=== PATIENT | female | born 1955 | race Caucasian/White ===

== ENCOUNTER → 2018-02-21 | Outpatient (CLI) | payer OTHER ==
--- NOTE | 2018-02-22 06:55 | US ---
EXAMINATION TYPE: US pelvis complete transvag DATE OF EXAM: 02/21/2018 COMPARISON: NONE CLINICAL HISTORY: N95.0 Post menopausal bleeding x 3 after intercourse per patient TECHNIQUE: . Transabdominal sonographic images of the pelvis were acquired. Transvaginal sonographi c images were medically necessary to better assess the following anatomy: endometrial thickness and b ilateral ovaries Date of LMP: 1999 EXAM MEASUREMENTS: Uterus: 6.8 x 4.0 x 3.1 cm Endometrial Stripe: 0.43 cm Right Ovary: 1.6 x 0.8 x 1.0 cm Left Ovary: 1.9 x 0.5 x 1.3 cm 1. Uterus: Retroverted; solid hyperechoic focus at upper right periphery = 0.4 x 0.4 x 0.4cm (possib le uterine fibroid) 2. Endometrium: thickness is wnl post menopause 3. Right Ovary: wnl, small follicle 4. Left Ovary: small follicles 5. Bilateral Adnexa: wnl 6. Posterior cul-de-sac: wnl IMPRESSION: 1. There is a solid-appearing hypoechoic myometrial nodule which may represent a uterine fibroid note d within the anterior fundus. Finding could be confirmed with MRI. 2. Endometrial stripe measures 4 mm.
== END | disposition home or self-care (01) ==
LOC: RADUSWWP 15:40
PROVIDERS: ATTEND Obstetrics & Gynecology
DX: N85.8 Other specified noninflammatory disorders of uterus (principal)
CPT/HCPCS: 76830; 76856

== ENCOUNTER → 2018-05-23 | Outpatient (CLI) | payer BC ==
--- NOTE | 2018-05-23 15:34 | BD ---
EXAMINATION TYPE: Axial Bone Density DATE OF EXAM: 05/23/2018 COMPARISON: 2009 CLINICAL HISTORY: screening Height: 5'3 Weight: 167 FRAX RISK QUESTIONS: Secondary Osteoporosis: menopause : age 44 RISK FACTORS HISTORY OF: Postmenopausal woman: y MEDICATIONS: Additional Medications: Additional History: EXAM MEASUREMENTS: Bone mineral densitometry was performed using the [employer] System. Bone mineral density as measured about the Lumbar spine is: ----- L1-L4(G/cm2): 1.023 T Score Values are as follows: ----- L2: -1.7 ----- L3: -0.9 ----- L4: -0.8 ----- L1-L4: -1.3 Bone mineral density about the R hip (g/cm2): 0.884 Bone mineral density about the L hip (g/cm2): 0.909 T Score values are as follows: -----R Neck: -1.1 -----L Neck: -0.9 -----R Total: -0.9 -----L Total: -1.0 IMPRESSION: Osteopenia NOTE: T-SCORE=SD OF THE YOUNG ADULT MEAN.
--- NOTE | 2018-05-24 10:10 | MM ---
Reason for exam: screening (asymptomatic). Last mammogram was performed 1 year and 1 month ago. History: Patient is postmenopausal. Ultrasound-guided core biopsy of the left breast, 2017. Physical Findings: A clinical breast exam by your physician is recommended on an annual basis and results should be correlated with mammographic findings. MG Screening Mammo w CAD Bilateral CC and MLO view(s) were taken. Prior study comparison: April 23, 2017, mammogram, performed at [facility]. April 19, 2017, mammogram, performed at [facility]. November 26, 2010, [facility] DIGITAL RIGHT MAMMOGRAM w/CAD. November 24, 2010, bilateral digital screening mammo w/CAD. There are scattered fibroglandular densities. Finding: There is a 10 mm equal density (isodense) mass in the 12 o'clock position of the right breast. Previous mammotome biopsy in the left breast. 5mm nodule central left breast. ASSESSMENT: Incomplete: need additional imaging evaluation, BI-RAD 0 RECOMMENDATION: Special view mammogram of both breasts. If lesion persists on supplemental views, image directed ultrasound is recommended. [facility] will attempt to contact patient to return for supplemental views and ultrasound if indicated.
== END | disposition home or self-care (01) ==
LOC: RADMAMWWP 13:45
PROVIDERS: ATTEND Obstetrics & Gynecology
DX: Z12.31 Encounter for screening mammogram for malignant neoplasm of breast (principal); M85.89 Other specified disorders of bone density and structure, multiple sites
CPT/HCPCS: 77067; 77080

== ENCOUNTER → 2018-06-01 | Outpatient (CLI) | payer BC ==
--- NOTE | 2018-06-01 09:09 | MM ---
Reason for exam: additional evaluation requested from abnormal screening. Last mammogram was performed less than 1 month ago. History: Patient is postmenopausal. Ultrasound-guided core biopsy of the left breast, 2017. Physical Findings: Nurse did not find any significant physical abnormalities on exam. MG Work Up Mamm w CAD BILAT Bilateral spot compression CC and LM view(s) were taken. Spot compression MLO view(s) were taken of the right breast. Prior study comparison: May 23, 2018, bilateral MG screening mammo w CAD. April 23, 2017, mammogram, performed at [facility]. There are scattered fibroglandular densities. No significant new findings when compared with previous films. These results were verbally communicated with the patient and result sheet given to the patient on 06/01/18. ASSESSMENT: Benign, BI-RAD 2 RECOMMENDATION: Return to routine screening mammogram schedule for both breasts.
== END | disposition home or self-care (01) ==
LOC: RADMAMWWP 08:00
PROVIDERS: ATTEND Obstetrics & Gynecology
DX: R92.8 Other abnormal and inconclusive findings on diagnostic imaging of breast (principal)
CPT/HCPCS: 77066

== ENCOUNTER → 2019-07-20 | Outpatient (CLI) | payer BC ==
--- NOTE | 2019-07-21 13:24 | MM ---
Reason for exam: screening (asymptomatic). Last mammogram was performed 1 year and 2 months ago. History: Patient is postmenopausal. Ultrasound-guided core biopsy of the left breast, 2017. Physical Findings: A clinical breast exam by your physician is recommended on an annual basis and results should be correlated with mammographic findings. MG 3D Screening Mammo W/Cad Bilateral CC and MLO view(s) were taken. Prior study comparison: June 01, 2018, bilateral MG work up mamm w CAD BILAT. May 23, 2018, bilateral MG screening mammo w CAD. There are scattered fibroglandular densities. There are waxing and waning round, oval, circumscribed bilateral masses, most mammographically compatible with cysts. No suspicious abnormality. Left biopsy marker noted. No significant changes when compared with prior studies. ASSESSMENT: Benign, BI-RAD 2 RECOMMENDATION: Routine screening mammogram of both breasts in 1 year.
== END | disposition home or self-care (01) ==
LOC: RADMAMWWP 07:04
PROVIDERS: ATTEND Obstetrics & Gynecology
DX: Z12.31 Encounter for screening mammogram for malignant neoplasm of breast (principal)
CPT/HCPCS: 77063; 77067

== ENCOUNTER → 2020-08-12 | Outpatient (CLI) | payer BC ==
--- NOTE | 2020-08-12 11:12 | BD ---
EXAMINATION TYPE: Axial Bone Density DATE OF EXAM: 08/12/2020 COMPARISON: 05/23/2018 CLINICAL HISTORY: 65-year-old female postmenopausal screening Height: 5 FT 3 1/2 IN Weight: 163 FRAX RISK QUESTIONS: Alcohol (3 or more units per day): NO Family History (Parent hip fracture): NO Glucocorticoids (More than 3mos): NO (Ex: prednisone, prednisolone, methylprednisolone, dexamethasone, and hydrocortisone). History of Fracture in Adulthood: NO Secondary Osteoporosis: 1. Type 1 Diabetes: NO 2. Hyperthyroidism: NO 3. Menopause before 45: YES 4. Malnutrition: NO 5. Chronic liver disease: NO Rheumatoid Arthritis: NO Current Tobacco Use: NO RISK FACTORS HISTORY OF: Family History of Osteoporosis: UNSURE Active: YES Diet low in dairy products/other sources of calcium: NO Postmenopausal woman: AGE 44 Take estrogen and/or progesterone medications: NONE Lost more than 2 inches in height since high school: NO MEDICATIONS: Additional Medications: NONE Additional History: EXAM MEASUREMENTS: Bone mineral densitometry was performed using the [employer] System. Bone mineral density as measured about the Lumbar spine is: ----- L1-L4(G/cm2): 0.981 T Score Values are as follows: ----- L2: -2.3 ----- L3: -2.0 ----- L4: -0.7 ----- L1-L4: -1.7 Bone mineral density has: DECREASED -5.0 % since study of: 2017 Bone mineral density about the R hip (g/cm2): 0.900 Bone mineral density about the L hip (g/cm2): 0.887 T Score values are as follows: -----R Neck: -1.0 -----L Neck: -1.1 -----R Total: -0.9 -----L Total: -0.9 Bone mineral density has: INCREASED 0.2 % since study of: 2017 IMPRESSION: Osteopenia (T Score between -2.5 and -1). There is slightly increased risk of fracture and the patient may be considered for treatment. Re-Screen 2-5 years. NOTE: T-SCORE=SD OF THE YOUNG ADULT MEAN.
--- NOTE | 2020-08-13 13:30 | MM ---
Reason for exam: screening (asymptomatic). Last mammogram was performed 1 year and 1 month ago. History: Patient is postmenopausal. Ultrasound-guided core biopsy of the left breast, 2017. Physical Findings: A clinical breast exam by your physician is recommended on an annual basis and results should be correlated with mammographic findings. MG 3D Screening Mammo W/Cad Bilateral CC and MLO view(s) were taken. Prior study comparison: July 20, 2019, bilateral MG 3d screening mammo w/cad. June 01, 2018, bilateral MG work up mamm w CAD BILAT. There are scattered fibroglandular densities. Previous mammotome biopsy in the left breast. There is chronic nodularity bilaterally. There is no discrete abnormality. ASSESSMENT: Benign, BI-RAD 2 RECOMMENDATION: Routine screening mammogram of both breasts in 1 year.
== END | disposition home or self-care (01) ==
LOC: RADBDWWP 07:11
PROVIDERS: ATTEND Obstetrics & Gynecology
DX: Z12.31 Encounter for screening mammogram for malignant neoplasm of breast (principal); M85.80 Other specified disorders of bone density and structure, unspecified site
CPT/HCPCS: 77063; 77067; 77080

== ENCOUNTER 2021-02-16 07:26 | Emergency (ER) | payer BC ==
[2021-02-16] MEDS ORDERED: SODIUM CHLORIDE 0.9% 1,000 ML IV STA (07:35)
[2021-02-16] MEDS ORDERED: MECLIZINE 12.5 MG TAB PO STA (07:43)
[2021-02-16] MEDS ORDERED: METOCLOPRAMIDE 5 MG/ML 2 ML VIAL IVP STA (07:43)
--- NOTE | 2021-02-16 07:46 | ED ---
General Adult HPI - General Chief complaint: Dizziness Stated complaint: dizzy, weakness Time Seen by Provider: 02/16/21 07:27 Source: patient Mode of arrival: ambulatory Limitations: no limitations - History of Present Illness Initial comments: Dictation was produced using [employer] dictation software. please excuse any grammatical, word or spelling errors. Chief Complaint: 65-year-old female with no significant past medical history p resents to the emergency Department with dizziness History of Present Illness: 65-year-old female she woke up today with dizziness. She states that she feels best when she is standing. She states that the position that is worse is lying down with her head turned to the left. She states that her symptoms improve while at rest without moving. She complains of some mild nausea but no vomiting. Patient has not had symptoms like this before. She does not have any history of strokes, TIAs, hypertension, diabetes, or high cholesterol. She has remote history of smoking. Patient has any numbne ss and paresthesias to the arms or legs. Denies any vision loss. The ROS documented in this emergency department record has been reviewed and confirmed by me. Those systems with pertinent positive or negative responses have been documented in the HPI. All other systems are other negative and/or noncontributory. PHYSICAL EXAM: General Impression: Alert and oriented x3, not in acute distress HEENT: Normocephalic atraumatic, extra-ocular movements intact, pupils equal and reactive to light bilaterally, mucous membranes moist. Cardiovascular: Heart regular rate and rhythm Chest: Able to complete full sentences, no retractions, no tachypnea Abdomen: abdomen soft, non-tender, non-distended, no organomegaly Musculoskeletal: Pulses present and equal in all extremities, no peripheral edema Motor: no focal deficits noted Neurological: CN II-XII grossly intact, no focal motor or sensory deficits noted, right beating nystagmus with right gaze, dizziness is reproduced with lying flat with head turn to the left. Symptoms are improved with sitting straight up., Negative hints exam. Skin: Intact with no visualized rashes Psych: Normal affect and mood ED course: 65-year-old female clinical presentation consistent with benign paroxysmal positional vertigo. Vital signs upon arrival are within acceptable limits. Patient does not have any other neurologic signs/symptoms, stroke risk factors to suggest cerebrovascular accident. Patient's symptoms are reportedly reproduced at bedside with position changes. She does not have constant dizziness at rest. EKG interpretation: Ventricular rate 90, normal sinus rhythm, VT interval 160, QRS 96, QTC 442. No VT prolongation, no QTC prolongation, no ST or T-wave changes noted. EKG compared to 11/27/2014 showing no changes. Overall, this EKG is unremarkable Patient reevaluated at bedside at 9:18 AM. She's been observed in emergency department for approximately 2 hours. She states that her symptoms feel mildly improved however she still feels symptoms whenever she turns her head rapidly. States that she ambulated to the restroom with no issues. States that standing is makes her symptoms feel much better. Disposition options were discussed with patient. She agrees to discharge. She understands that she should return to the emergency department if her symptoms evolve or become worse or if there is any associated other neurologic issues including weakness, ataxia to the extremities. Patient was counseled on the symptoms of vertebrobasilar insufficiency, and some lesions and cerebellar lesions. Patient is understandable and agreeable. - Related Data Home Medications Medication Instructions Recorded Confirmed Cholecalciferol [Vitamin D3] 400 unit PO DAILY@1200 11/27/14 11/27/14 Previous Rx's Medication Instructions Recorded Levofloxacin [Levaquin] 500 mg PO DAILY #5 tab 11/28/14 Meclizine [Antivert] 25 mg PO TID PRN #15 tab 02/16/21 Allergies Allergy/AdvReac Type Severity Reaction Status Date / Time nitrofurantoin Allergy Anaphylaxis Verified 02/16/21 07:34 [From Macrobid] amoxicillin trihydrate AdvReac JOINT PAIN Verified 02/16/21 07:34 [From Augmentin] potassium clavulanate AdvReac JOINT PAIN Verified 02/16/21 07:34 [From Augmentin] Sulfa (Sulfonamide AdvReac Rash/Hives Verified 02/16/21 07:34 Antibiotics) BANDAIDS Allergy Rash/Hives Uncoded 02/16/21 07:34 Review of Systems ROS Statement: Those systems with pertinent positive or pertinent negative responses have been documented in the HPI. ROS Other: All systems not noted in ROS Statement are negative. Past Medical History Past Medical History: Skin Disorder Additional Past Medical History / Comment(s): OSTEOPENIA, HIATAL HERNIA,PSORIASES, SHINGLES 2005, IBS, CONSTIPATION, History of Any Multi-Drug Resistant Organisms: None Reported Past Surgical History: Section, Tonsillectomy Past Anesthesia/Blood Transfusion Reactions: No Reported Reaction Past Psychological History: No Psychological Hx Reported Smoking Status: Never smoker Past Alcohol Use History: Occasional Past Drug Use History: None Reported - Past Family History Father Family Medical History: Cancer Additional Family Medical History / Comment(s): FROM [place] AGE 47 WAS A SMOKER AND DRINKER Mother Family Medical History: Hyperlipidemia, Hypertension, Thyroid Disorder Additional Family Medical History / Comment(s): IN [facility] HAD AMANDEEP. IS 88 YEARS OLD General Exam Limitations: no limitations Course Vital Signs 02/16/21 07:31 Temperature 98.7 F Pulse Rate 68 Respiratory 20 Rate Blood Pressure 161/81 O2 Sat by Pulse 99 Oximetry Medical Decision Making - Lab Data Result diagrams: 02/16/21 07:39 02/16/21 07:39 Lab Results 02/16/21 02/16/21 02/16/21 Range/Units 07:39 07:39 07:47 WBC 6.5 (3.8-10.6) k/uL RBC 4.90 (3.80-5.40) m/uL Hgb 14.9 (11.4-16.0) gm/dL Hct 45.2 (34.0-46.0) % MCV 92.2 (80.0-100.0) fL MCH 30.5 (25.0-35.0) pg MCHC 33.0 (31.0-37.0) g/dL RDW 12.4 (11.5-15.5) % Plt Count 283 (150-450) k/uL MPV 7.1 Neutrophils % 71 % Lymphocytes % 20 % Monocytes % 5 % Eosinophils % 2 % Basophils % 1 % Neutrophils # 4.6 (1.3-7.7) k/uL Lymphocytes # 1.3 (1.0-4.8) k/uL Monocytes # 0.3 (0-1.0) k/uL Eosinophils # 0.1 (0-0.7) k/uL Basophils # 0.0 (0-0.2) k/uL Sodium 137 (137-145) mmol/L Potassium 3.8 (3.5-5.1) mmol/L Chloride 103 (98-107) mmol/L Carbon Dioxide 27 (22-30) mmol/L Anion Gap 7 mmol/L BUN 13 (7-17) mg/dL Creatinine 0.80 (0.52-1.04) mg/dL Est GFR (CKD-EPI)AfAm >90 (>60 ml/min/1.73 sqM) Est GFR (CKD-EPI)NonAf 79 (>60 ml/min/1.73 sqM) Glucose 98 (74-99) mg/dL Calcium 9.5 (8.4-10.2) mg/dL Magnesium 2.0 (1.6-2.3) mg/dL Urine Color Light Yellow Urine Appearance Clear (Clear) Urine pH 6.5 (5.0-8.0) Ur Specific [place] 1.005 (1.001-1.035) Urine Protein Negative (Negative) Urine Glucose (UA) Negative (Negative) Urine Ketones Negative (Negative) Urine Blood Small H (Negative) Urine Nitrite Negative (Negative) Urine Bilirubin Negative (Negative) Urine Urobilinogen <2.0 (<2.0) mg/dL Ur Leukocyte Esterase Negative (Negative) Urine RBC 1 (0-5) /hpf Urine WBC <1 (0-5) /hpf Ur Squamous Epith Cells <1 (0-4) /hpf Disposition Clinical Impression: Vertigo Disposition: HOME SELF-CARE Condition: Fair Instructions (If sedation given, give patient instructions): Dizziness (ED) Prescriptions: Meclizine [Antivert] 25 mg PO TID PRN #15 tab PRN Reason: dizziness Is patient prescribed a controlled substance at d/c from ED?: No Referrals: Preethi Lynn MD [Primary Care Provider] - 1-2 days
[2021-02-16 07:56] LABS: Basophils % (A) 1 %; Eosinophils # (A) 0.1 k/uL (0-0.7); Eosinophils % (A) 2 %; HCT 45.2 % (34.0-46.0); HGB 14.9 gm/dL (11.4-16.0); Lymphocytes # (A) 1.3 k/uL (1.0-4.8); Lymphocytes % (A) 20 %; MCH 30.5 pg (25.0-35.0); MCV 92.2 fL (80.0-100.0); Mean Platelet Volume 7.1; Monocytes # (A) 0.3 k/uL (0-1.0); Monocytes % (A) 5 %; Neutrophils # (A) 4.6 k/uL (1.3-7.7); Neutrophils % (A) 71 %; Platelet Count 283 k/uL (150-450); RDW 12.4 % (11.5-15.5); WBC 6.5 k/uL (3.8-10.6)
[2021-02-16 08:06] LABS: African American GFR (CKD) >90 (>60 ml/min/1.73 sqM); Anion Gap 7 mmol/L; Blood Urea Nitrogen 13 mg/dL (7-17); Calcium 9.5 mg/dL (8.4-10.2); Carbon Dioxide 27 mmol/L (22-30); Chloride 103 mmol/L (98-107); Glucose 98 mg/dL (74-99); Non-African American GFR(CKD) 79 (>60 ml/min/1.73 sqM); Potassium 3.8 mmol/L (3.5-5.1); Sodium 137 mmol/L (137-145)
[2021-02-16 08:10] LABS: Appearance,Urine Clear (Clear); Bilirubin,Urine Negative (Negative); Blood,Urine Small (Negative); Color,Urine Light Yellow; Glucose,Urine (UA) Negative (Negative); Ketones,Urine Negative (Negative); Leukocyte Esterase,Urine Negative (Negative); Nitrite,Urine Negative (Negative); PH, Urine 6.5 (5.0-8.0); Protein,Urine Negative (Negative); RBC,Urine 1 /hpf (0-5); Specific Gravity,Urine 1.005 (1.001-1.035); Squamous Epithelial Cell,Urine <1 /hpf (0-4); Urobilinogen,Urine <2.0 mg/dL (<2.0); WBC,Urine <1 /hpf (0-5)
[2021-02-16 09:28] VITALS: BP 144/74; PULSE 78; RESP 18; TEMP 98
== END 2021-02-16 09:31 | disposition home or self-care (01) ==
LOC: EC 07:26
DX: R42 Dizziness and giddiness (principal); R53.1 Weakness; R11.0 Nausea; M85.80 Other specified disorders of bone density and structure, unspecified site
CPT/HCPCS: 36415; 80048; 81001; 83735; 85025; 93005; 96361; 96374; 99285

== ENCOUNTER → 2021-08-13 | Outpatient (CLI) | payer BC ==
--- NOTE | 2021-08-15 11:28 | MM ---
Reason for exam: screening (asymptomatic). Last mammogram was performed 1 year ago. History: Patient is postmenopausal. Ultrasound-guided core biopsy of the left breast, 2017. Physical Findings: A clinical breast exam by your physician is recommended on an annual basis and results should be correlated with mammographic findings. MG 3D Screening Mammo W/Cad Bilateral CC and MLO view(s) were taken. Prior study comparison: August 12, 2020, bilateral MG 3d screening mammo w/cad. July 20, 2019, bilateral MG 3d screening mammo w/cad. There are scattered fibroglandular densities. Previous mammotome biopsy in the left breast. There is chronic nodularity in the right breast. There is no discrete abnormality. ASSESSMENT: Benign, BI-RAD 2 RECOMMENDATION: Routine screening mammogram of both breasts in 1 year.
== END | disposition home or self-care (01) ==
LOC: RADMAMWWP 07:00
PROVIDERS: ATTEND Obstetrics & Gynecology
DX: Z12.31 Encounter for screening mammogram for malignant neoplasm of breast (principal); Z78.0 Asymptomatic menopausal state
CPT/HCPCS: 77063; 77067

== ENCOUNTER → 2022-07-30 | Outpatient (CLI) | payer MEDICARE ==
--- NOTE | 2022-07-30 12:51 | US ---
EXAMINATION TYPE: US pelvic complete DATE OF EXAM: 07/30/2022 COMPARISON: 02/21/2018 CLINICAL HISTORY: 67-year-old female R10.2 pelvic and perineal pain. Intermittent pelvic pressure. TECHNIQUE: Transabdominal sonographic images of the pelvis were acquired. Transvaginal sonographic i mages were medically necessary to better assess the anatomy. Date of LMP: Postmenopausal FINDINGS: EXAM MEASUREMENTS: Uterus: 8.2 x 2.5 x 2.9 cm Endometrial Stripe: 0.36 cm 1. Uterus: Retroverted. Echogenic intramural mass visualized right fundus 0.45 x 0.46 x 0.47cm. A mi llimeter larger from prior. 2. Endometrium: wnl 3. Right Ovary: Obscured by overlying bowel gas 4. Left Ovary: Obscured by overlying bowel gas 5. Bilateral Adnexa: wnl 6. Posterior cul-de-sac: wnl IMPRESSION: 1. Retroverted uterus. 2. A 5 mm echogenic lesion right uterine fundus, only a millimeter larger from the 2018 study. This c ould represent some unusual calcification, atypical fibroid, adenomyoma, or mesenchymal tumor such as a lipoma. 3. Normal, thin endometrial stripe. 4. Neither ovary could be visualized.
== END | disposition home or self-care (01) ==
LOC: RADUSWWP 09:40
PROVIDERS: ATTEND Family Medicine
DX: N85.8 Other specified noninflammatory disorders of uterus (principal); N85.4 Malposition of uterus; R10.2 Pelvic and perineal pain
CPT/HCPCS: 76830; 76856

== ENCOUNTER → 2022-08-26 | Outpatient (CLI) | payer MEDICARE ==
--- NOTE | 2022-08-26 16:09 | BD ---
EXAMINATION TYPE: Axial Bone Density DATE OF EXAM: 08/26/2022 COMPARISON: 08/12/2020 CLINICAL HISTORY: 67 yearsold Female. ICD-10 CODE: Z12.31 SCREEN MAMMO, M85.88 Height: 63 Weight: 163 FRAX RISK QUESTIONS: Family History (Parent hip fracture): NO History of Fracture in Adulthood: NO Secondary Osteoporosis: YES 3. Menopause before 45: YES 44 Rheumatoid Arthritis: NO RISK FACTORS HISTORY OF: Family History of Osteoporosis: YES MOTHER Active: YES Diet low in dairy products/other sources of calcium: NO Postmenopausal woman: YES Lost more than 2 inches in height since high school: NO Frequent falls: NO Poor Health: NO MEDICATIONS: Additional Medications: YES VIT D EXAM MEASUREMENTS: Bone mineral densitometry was performed using the [employer] System. Bone mineral density as measured about the Lumbar spine is: ----- L1-L4(G/cm2): 1.005 T Score Values are as follows: ----- L1: -2.2 ----- L2: -1.8 ----- L3: -1.9 ----- L4: -0.5 ----- L1-L4: -1.5 Bone mineral density has: Increased 2.4% since study of: 08/12/2020 Bone mineral density about the R hip (g/cm2): 0.901 Bone mineral density about the L hip (g/cm2): 0.887 T Score values are as follows: -----R Neck: -1.0 -----L Neck: -0.7 -----R Total: -0.8 -----L Total: -1.0 Bone mineral density has: Increased 0.1% since study of: 08/12/2020 FRAX%s: The graph provided illustrates a 7.9% chance for a major osteoporotic fx and a 0.6% chance fo r the hips probability for fx in 10 years time. IMPRESSION: Osteopenia (T Score between -2.5 and -1). There is slightly increased risk of fracture and the patient may be considered for treatment. Re-Screen 2-5 years. NOTE: T-SCORE=SD OF THE YOUNG ADULT MEAN.
--- NOTE | 2022-08-27 08:47 | MM ---
Reason for Exam: Screening (asymptomatic). Last screening mammogram was performed 12 month(s) ago. Patient History: Menarche at age 14. First Full-Term at age 30. Postmenopausal. 2017, Ultrasound-Guided Core Biopsy on the Left side. Risk Values: Jany 5 year model risk: 2.2%. NCI Lifetime model risk: 8.2%. Prior Study Comparison: 07/20/2019 Bilateral Screening Mammogram, [facility]. 08/12/2020 Bilateral Screening Mammogram, [facility]. 08/13/2021 Bilateral Screening Mammogram, [facility]. Tissue Density: The breast tissue is almost entirely fat. Findings: Analyzed By CAD. There is no suspicious group of microcalcifications or new suspicious mass in either breast. Overall Assessment: Negative, BI-RAD 1 Management: Screening Mammogram of both breasts in 1 year. A clinical breast exam by your physician is recommended on an annual basis and results should be correlated with mammographic findings. [facility] will attempt to contact patient to return for supplemental views and ultrasound if indicated. Electronically signed and approved by: Aneesh Orr DO
== END | disposition home or self-care (01) ==
LOC: RADMAMWWP 07:05
PROVIDERS: ATTEND Obstetrics & Gynecology
DX: Z12.31 Encounter for screening mammogram for malignant neoplasm of breast (principal); M85.89 Other specified disorders of bone density and structure, multiple sites; Z78.0 Asymptomatic menopausal state
CPT/HCPCS: 77063; 77067; 77080

== ENCOUNTER → 2023-09-08 | Outpatient (CLI) | payer MEDICARE ==
--- NOTE | 2023-09-08 08:32 | MM ---
Reason for Exam: Screening (asymptomatic). Last screening mammogram was performed 12 month(s) ago. Patient History: Menarche at age 14. First Full-Term at age 30. Postmenopausal. Patient has history of breast feeding. 2017, Ultrasound-Guided Core Biopsy on the Left side. Risk Values: Jany 5 year model risk: 2.2%. NCI Lifetime model risk: 7.9%. Prior Study Comparison: 08/12/2020 Bilateral Screening Mammogram, [facility]. 08/13/2021 Bilateral Screening Mammogram, [facility]. 08/26/2022 Bilateral MG 3D screening mammo w/cad, [facility]. Tissue Density: The breast tissue is almost entirely fat. Findings: Analyzed By CAD. Left breast biopsy clip. There is no suspicious group of microcalcifications or new suspicious mass. Overall Assessment: Benign, BI-RAD 2 Management: Screening Mammogram of both breasts in [address] [facility] will attempt to contact patient to return for supplemental views and ultrasound if indicated. Patient should continue monthly self-breast exams. A clinical breast exam by your physician is recommended on an annual basis. This exam should not preclude additional follow-up of suspicious palpable abnormalities. Note on Jany scores and lifetime risk: 1. A Jany score greater than 3% is considered moderate risk. If this is the case, consider specialist referral to assess eligibility for a risk reducing agent. 2. If overall lifetime risk for the development of breast cancer is 20% or higher, the patient may qualify for future screening with alternating mammogram and breast MRI. Electronically signed and approved by: Aneesh Orr DO
== END | disposition home or self-care (01) ==
LOC: RADMAMWWP 07:01
PROVIDERS: ATTEND Obstetrics & Gynecology
DX: Z12.31 Encounter for screening mammogram for malignant neoplasm of breast (principal); Z78.0 Asymptomatic menopausal state
CPT/HCPCS: 77063; 77067

== ENCOUNTER 2024-05-25 08:44 | Day surgery (SDC) | payer MEDICARE ==
[2024-05-25 09:28] VITALS: RESP 16; TEMP 98.3
[2024-05-25] MEDS: TRIAMCINOLONE ACETONIDE 40 MG/ML 1 ML VIAL INTRABURSA STA (10:07)
[2024-05-25 10:36] VITALS: BP 141/75; PULSE 76
--- NOTE | 2024-05-25 18:49 | US ---
EXAMINATION TYPE: US guided asp/inj major joint DATE OF EXAM: 05/25/2024 Comparison: None Clinical History: 68 year old female M71.21 SYNOVIAL CYST OF POPLITEAL SPACE M17.11 UNI. Referred for Scales's cyst aspiration and injection. Procedure: 1. Ultrasound of the right popliteal fossa 2. Aspiration of the Scales's cyst with ultrasound guidance. 3. Injection of Kenalog with ultrasound guidance. TECHNIQUE: The procedure, risks, and alternatives, were discussed with the patient, who requested maribel t we proceed. The consent form was signed, and teach-back occurred. The site/side of the procedure wa s marked with a line with participation by the patient. The accompanying paperwork was verified for c onsistency. A directed history and physical exam was performed prior to the procedure. Medication rec onciliation was performed by ancillary personnel. A critical pause was performed with assisting amber hernandez just prior to the procedure and the patient's identity was confirmed using 2 identifiers. Imagin g guidance was utilized to select the precise skin entry point just prior to the procedure. Initial ultrasound shows a moderate-sized Scales's cyst measuring 4.0 x 1.6 cm with some internal mild synovial thickening. The right popliteal fossa was prepped and draped in the usual sterile fashion and local 1% lidocaine anesthesia was instilled. The procedure was performed with the patient in prone position. Under ultrasound guidance and trocar technique, a 5 [place] One-step catheter system was introduced in to right-sided Scales's cyst. Ultrasound confirmed the position of the catheter. Under ultrasound surv eillance, aspiration yielded 5 mL of normal clear yellow synovial fluid. The Scales's cyst collapsed c ompletely though the mildly thickened synovium continued to outline the collapsed space. Subsequently, 1 mL of Kenalog-40 was injected into the collapsed space. As the needle was withdrawn, total of one to 2 mL 1% lidocaine was injected into the collapsed space and infiltrated along the cat heter tract. The patient tolerated the procedure well. There were no immediate complications. After the procedure, the patient's condition was unchanged. Es timated blood loss was minimal. The patient was instructed on routine postprocedure precautions. IMPRESSION: Ultrasound guided right Scales's cyst aspiration and steroid injection. The cyst collapsed with 5 mL n ormal synovial fluid aspirated and discarded. No immediate complication.
== END 2024-05-25 10:37 | disposition home or self-care (01) ==
LOC: RADPROMAIN 08:44
PROVIDERS: ATTEND Orthopaedic Surgery
DX: M71.21 Synovial cyst of popliteal space [Baker], right knee (principal); M17.11 Unilateral primary osteoarthritis, right knee
CPT/HCPCS: 20611; J3301

== ENCOUNTER → 2024-09-26 | Outpatient (CLI) | payer MEDICARE ==
--- NOTE | 2024-09-26 08:46 | MM ---
Reason for Exam: Screening (asymptomatic). Last mammogram was performed 1 year(s) and 1 month(s) ago. Patient History: Menarche at age 14. First Full-Term at age 30. Postmenopausal. Patient has history of breast feeding. Hormonal Contraceptives, from age 18 until age 22. 2017, Ultrasound-Guided Core Biopsy on the Left side. Risk Values: Jany 5 year model risk: 2.2%. NCI Lifetime model risk: 7.6%. Prior Study Comparison: 08/13/2021 Bilateral Screening Mammogram, [facility]. 08/26/2022 Bilateral MG 3D screening mammo w/cad, [facility]. 09/08/2023 Bilateral MG 3D screening mammo w/cad, [facility]. Tissue Density: The breasts are almost entirely fatty. Findings: Analyzed By CAD. Mammotome biopsy clip left breast is redemonstrated. Stable tiny subcentimeter circumscribed masses in the bilateral breasts more numerous in the right breast presumed simple cysts. There is no suspicious new group of microcalcifications or enlarging or new suspicious mass in either breast. Overall Assessment: Benign, BI-RAD 2 Management: Screening Mammogram of both breasts in 1 year. . Patient should continue monthly self-breast exams. A clinical breast exam by your physician is recommended on an annual basis. This exam should not preclude additional follow-up of suspicious palpable abnormalities. Note on Jany scores and lifetime risk: 1. A Jany score greater than 3% is considered moderate risk. If this is the case, consider specialist referral to assess eligibility for a risk reducing agent. 2. If overall lifetime risk for the development of breast cancer is 20% or higher, the patient may qualify for future screening with alternating mammogram and breast MRI. [facility], , 09/26/2024 8:42 AM. Electronically signed and approved by: Russ Lee M.D.
== END | disposition home or self-care (01) ==
LOC: RADMAMWWP 07:26
PROVIDERS: ATTEND Family Medicine
DX: Z12.31 Encounter for screening mammogram for malignant neoplasm of breast (principal); Z78.0 Asymptomatic menopausal state; R92.313 Mammographic fatty tissue density, bilateral breasts; Z98.82 Breast implant status
CPT/HCPCS: 77063; 77067

== ENCOUNTER 2024-10-31 18:36 | Observation (INO) | payer MEDICARE ==
[2024-10-31 19:52] LABS: Appearance,Urine Clear (Clear); Bacteria,Urine Rare /hpf; Bilirubin,Urine Negative (Negative); Blood,Urine Small (Negative); Color,Urine Colorless; Glucose,Urine (UA) Negative (Negative); Ketones,Urine Negative (Negative); Leukocyte Esterase,Urine Large (Negative); Nitrite,Urine Negative (Negative); PH, Urine 5.5 (5.0-8.0); Protein,Urine Negative (Negative); RBC,Urine 3 /hpf (0-5); Specific Gravity,Urine 1.003 (1.001-1.035); Urobilinogen,Urine <2.0 mg/dL (<2.0); WBC,Urine 21 /hpf (0-5)
[2024-10-31 19:58] LABS: Basophils # (A) 0.1 k/uL (0-0.2); Basophils % (A) 1 %; Eosinophils # (A) 0.1 k/uL (0-0.7); Eosinophils % (A) 1 %; HCT 43.3 % (34.0-46.0); HGB 14.3 gm/dL (11.4-16.0); Lymphocytes # (A) 1.4 k/uL (1.0-4.8); Lymphocytes % (A) 15 %; MCH 30.7 pg (25.0-35.0); MCHC 33.1 g/dL (31.0-37.0); MCV 92.7 fL (80.0-100.0); Mean Platelet Volume 8.4; Monocytes # (A) 0.5 k/uL (0-1.0); Monocytes % (A) 5 %; Neutrophils # (A) 7.2 k/uL (1.3-7.7); Neutrophils % (A) 77 %; Platelet Count 245 k/uL (150-450); RBC 4.67 m/uL (3.80-5.40); RDW 13.2 % (11.5-15.5); WBC 9.4 k/uL (3.8-10.6)
[2024-10-31 19:59] LABS: ALT 14 U/L (4-34); AST 24 U/L (14-36); African American GFR (CKD) >90 (>60 ml/min/1.73 sqM); Albumin 4.1 g/dL (3.5-5.0); Alkaline Phosphatase 72 U/L (38-126); Anion Gap 14 mmol/L; Blood Urea Nitrogen 13 mg/dL (7-17); Calcium 9.3 mg/dL (8.4-10.2); Carbon Dioxide 18 mmol/L (22-30); Chloride 104 mmol/L (98-107); Glucose 117 mg/dL (74-99); Lipase 354 U/L (23-300); Magnesium 1.9 mg/dL (1.6-2.3); Non-African American GFR(CKD) 88 (>60 ml/min/1.73 sqM); Sodium 136 mmol/L (137-145); Total Bilirubin 0.4 mg/dL (0.2-1.3); Total Protein 6.7 g/dL (6.3-8.2)
[2024-10-31 20:05] LABS: INR 0.9 (<1.2); Prothrombin Time 10.2 sec (10.0-12.5)
[2024-10-31 20:07] LABS: Partial Thromboplastin Time 19.7 sec (22.0-30.0)
--- NOTE | 2024-10-31 20:09 | XR ---
EXAMINATION TYPE: XR chest 2V DATE OF EXAM: 10/31/2024 7:51 PM COMPARISON: Chest radiographs from 11/27/2024. CLINICAL INDICATION: Female, 69 years old with history of Chest Pain; TECHNIQUE: XR chest 2V Frontal and lateral views of the chest. FINDINGS: Lungs/Pleura: There is no evidence of pleural effusion, focal consolidation, or pneumothorax. Pulmonary vascularity: Unremarkable. Heart/mediastinum: Cardiomediastinal silhouette is unremarkable. Musculoskeletal: No acute osseous pathology. IMPRESSION: No acute cardiopulmonary disease/process. [facility], , 10/31/2024 8:07 PM
[2024-10-31 20:22] LABS: Influenza A Not Detected (Not Detectd); Influenza B Not Detected (Not Detectd); RSV Not Detected (Not Detectd)
[2024-10-31] MEDS ORDERED: NALOXONE 0.4 MG/ML 1 ML VIAL IV PRN (22:00)
--- NOTE | 2024-10-31 22:03 | ED ---
Chest Pain HPI - General Chief Complaint: Chest Pain Stated Complaint: Chest Pain Time Seen by Provider: 10/31/24 18:56 Source: patient Mode of arrival: EMS Limitations: no limitations - History of Present Illness Initial Comments: 69-year-old female presenting with chief complaint of chest pain. Patient states that about 15 minutes after she ate dinner she started having a pain in the left side of her chest with some radiation to the left arm and back. No difficulty breathing. No cough congestion or sore throat. No fevers or chills. No alleviating or aggravating factors. No lower extremity swelling. No numbness tingling or weakness. No nausea vomiting or abdominal pain. No diaphoresis. She is a former smoker. States that her grandfather had a heart attack - Related Data Previous Rx's Medication Instructions Recorded Pantoprazole [Protonix] 40 mg PO AC-BRKFST #30 tab 11/01/24 Allergies Allergy/AdvReac Type Severity Reaction Status Date / Time nitrofurantoin Allergy Anaphylaxis Verified 11/01/24 08:33 [From Macrobid] amoxicillin trihydrate AdvReac JOINT PAIN Verified 11/01/24 08:33 [From Augmentin] levofloxacin AdvReac Rapid Verified 11/01/24 08:33 Heart Rate potassium clavulanate AdvReac JOINT PAIN Verified 11/01/24 08:33 [From Augmentin] Sulfa (Sulfonamide AdvReac Rash/Hives Verified 11/01/24 08:33 Antibiotics) BANDAIDS Allergy Rash/Hives Uncoded 11/01/24 08:33 Review of Systems ROS Statement: Those systems with pertinent positive or pertinent negative responses have been documented in the HPI. ROS Other: All systems not noted in ROS Statement are negative. Past Medical History Past Medical History: Skin Disorder Additional Past Medical History / Comment(s): OSTEOPENIA, HIATAL HERNIA,PSORIASES, SHINGLES 2005, IBS, CONSTIPATION, right knee popliteal cyst History of Any Multi-Drug Resistant Organisms: None Reported Past Surgical History: Section, Tonsillectomy Past Anesthesia/Blood Transfusion Reactions: No Reported Reaction Past Psychological History: No Psychological Hx Reported Smoking Status: Never smoker Past Alcohol Use History: Occasional Past Drug Use History: None Reported - Past Family History Father Family Medical History: Cancer Additional Family Medical History / Comment(s): FROM BLADDER CANCER AGE 47 WAS A SMOKER AND DRINKER Mother Family Medical History: Hyperlipidemia, Hypertension, Thyroid Disorder Additional Family Medical History / Comment(s): IN CARE HOME HAD AMANDEEP. IS 88 YEARS OLD General Exam Limitations: no limitations General appearance: alert, in no apparent distress Head exam: Present: atraumatic, normocephalic, normal inspection Eye exam: Present: normal appearance, EOMI Neck exam: Present: normal inspection. Absent: meningismus Respiratory exam: Present: normal lung sounds bilaterally. Absent: respiratory distress, wheezes, rales, rhonchi, stridor, chest wall tenderness Cardiovascular Exam: Present: regular rate, normal rhythm, normal heart sounds. Absent: systolic murmur, diastolic murmur, rubs, gallop, clicks Extremities exam: Absent: pedal edema Neurological exam: Present: alert, oriented X3 Psychiatric exam: Present: normal affect, normal mood Skin exam: Present: warm, dry, normal color Course Vital Signs 10/31/24 11/01/24 11/01/24 18:46 00:11 04:36 Temperature 98.3 F 97.8 F 97.8 F Pulse Rate 103 H 58 L 62 Respiratory 16 18 18 Rate Blood Pressure 153/76 140/91 134/75 O2 Sat by Pulse 97 96 96 Oximetry 11/01/24 11/01/24 10:17 16:00 Temperature 97.8 F Pulse Rate 70 62 Respiratory 22 24 Rate Blood Pressure 135/92 130/88 O2 Sat by Pulse 95 96 Oximetry Chest Pain MDM - MDM Was pt. sent in by a medical professional or institution (, PA, ORTHOPEDIC CAST SPECIALIST, urgent care, hospital, or [facility]...) When possible be specific @ -No Did you speak to anyone other than the patient for history (EMS, parent, family, police, friend...)? What history was obtained from this source @ -No Did you review nursing and triage notes (agree or disagree)? Why? @ -I reviewed and agree with nursing and triage notes Were old charts reviewed (outside hosp., previous admission, EMS record, old EKG, old radiological studies, urgent care reports/EKG's, [facility] records)? Report findings @ -Previous EKG Differential Diagnosis (chest pain, altered mental status, abdominal pain women, abdominal pain men, vaginal bleeding, weakness, fever, dyspnea, syncope, headache, dizziness, GI bleed, back pain, seizure, CVA, palpatations, mental health, musculoskeletal)? @ -MDM Differential Chest Pain: Stable Angina, Unstable Angina, STEMI, NSTEMI Aortic Dissection, Pneumothorax, Musculoskeletal, Esophageal Spasm GERD, Cholecystitis, Pancreatitis, Zoster This is not meant to be an all-inclusive list. EKG interpreted by me (3pts min.). @ -EKG shows sinus rhythm ventricular rate 96. CA interval 142. QRS 89. QT 323. QTc 377. T wave inversions in leads III and aVF which seem to be present on previous EKG as well X-rays interpreted by me (1pt min.). @ -X-ray shows no acute process HEENT: No lightheadedness or hoarseness. CT interpreted by me (1pt min.). @ -None done U/S interpreted by me (1pt. min.). @ -None done What testing was considered but not performed or refused? (CT, X-rays, U/S, labs)? Why? @ -None What meds were considered but not given or refused? Why? @ -None Did you discuss the management of the patient with other professionals (professionals i.e. , PA, ORTHOPEDIC CAST SPECIALIST, lab, RT, psych nurse, social welfare clerk, dishroom attendant, teacher, chief operating officer, briefcase sewer)? Give summary @ -Spoke with Gracie Hancock who accepts admission Was smoking cessation discussed for >3mins.? @ -No Was critical care preformed (if so, how long)? @ -No Were there social determinants of health that impacted care today? How? (Homelessness, low income, unemployed, alcoholism, drug addiction, transportation, low edu. Level, literacy, decrease access to med. care, half-way, rehab)? @ -No Was there de-escalation of care discussed even if they declined (Discuss DNR or withdrawal of care, Hospice)? DNR status @ -No What co-morbidities impacted this encounter? (DM, HTN, Smoking, COPD, CAD, Cancer, CVA, ARF, Chemo, Hep., AIDS, mental health diagnosis, sleep apnea, morbid obesity)? @ -None Was patient admitted / discharged? Hospital course, mention meds given and route, prescriptions, significant lab abnormalities, going to OR and other pertinent info. @ -69-year-old female presenting with chief complaint of chest pain. Started tonight. History and physical examination are conducted. No leukocytosis or anemia. Troponin is negative. Lipase is 354. Patient is not having epigastric pain nausea or vomiting. She drinks occasionally, last drink 3 nights ago. Urine shows large leukocytes with 21 WBCs, treated with Rocephin. She is negative for influenza, RSV, COVID. EKG shows sinus rhythm there are some T wave inversions in leads III and aVF which seem to be present on previous EKG. Chest x-ray showed no acute process. Patient will be admitted for observation, trending troponins, and evaluation by cardiology. Patient is agreeable with this plan. I discussed this case with my attending Dr. Rouse Undiagnosed new problem with uncertain prognosis? @ -No Drug Therapy requiring intensive monitoring for toxicity (Heparin, Nitro, Insulin, Cardizem)? @ -No Were any procedures done? @ -No Diagnosis/symptom? @ -Chest pain Acute, or Chronic, or Acute on Chronic? @ -Acute Uncomplicated (without systemic symptoms) or Complicated (systemic symptoms)? @ -Complicated Side effects of treatment? @ -No Exacerbation, Progression, or Severe Exacerbation? @ -No Poses a threat to life or bodily function? How? (Chest pain, [place], [place], pneumonia, PE, COPD, DKA, ARF, appy, cholecystitis, CVA, Diverticulitis, Homicidal, Suicidal, threat to staff... and all critical care pts) @ -Yes Disposition Clinical Impression: Chest pain Disposition: ADMITTED IP TO THIS HOSP Condition: Fair Time of Disposition: 22:04
[2024-10-31] MEDS: cefTRIAXone IN SWFI 1,000 MG/10 ML SYRINGE IVP STA (23:16)
[2024-11-01 00:12] VITALS: TEMP 97.8
--- NOTE | 2024-11-01 12:37 | P.CRDCN ---
History of Present Illness Consult date: 11/01/24 Consult reason: chest pain History of present illness: This is a 69-year-old female with no significant past medical history. We have been asked to evaluate patient for chest pain. Patient denies having any previous cardiac history, no previous cardiac workup and does not follow with a maintenance team member. Patient states she developed left-sided chest pain then around around the side to the back which was sharp. No radiation to the arm. She st ates she tried to put ice on it but it seemed to get worse and more tight. The pain was not going away so she decided to come into the hospital for further evaluation. EMS did give her a nitroglycerin tablet and aspirin. She states pain was still there when she arrived to the hospital but not as bad. She denies shortness of breath. She states she is a non-smoker. She drinks alcohol socially. No history of diabetes or hypertension. No family history of coronary artery disease. Patient also had a recent episode of shingles on the left side of her chest that was in the lower area where her current chest pain is located. Blood pressure 135/92, heart rate 70, pulse ox 95% on room air. Patient is seen today in the emergency center waiting for a bed on the observation unit. -EKG: Sinus rhythm with no acute ST changes. -Chest x-ray: No acute findings -Laboratory studies: Troponin negative x 3 -Home cardiac medications: None -Echocardiogram in 2015 revealed EF of 55 to 60%. Review Of Systems: At the time of my exam: CONSTITUTIONAL: Denies fever or chills. HEENT: Denies blurred vision, vision changes, or eye pain. Denies hemoptysis CARDIOVASCULAR: Denies chest pain. Denies orthopnea. Denies PND. Denies palpitations RESPIRATORY: Denies shortness of breath. GASTROINTESTINAL: Denies abdominal pain. Denies nausea or vomiting. HEMATOLOGIC: Denies bleeding disorders. GENITOURINARY: Denies any blood in urine. SKIN: Denies puritis. Denies rash. Physical examination: Gen: This is a 69-year-old female in no acute distress. VS: reviewed HEENT: Head is atraumatic, normocephalic. Pupils equal, round. Sclerae is anicteric. NECK: Supple. No JVD. LUNGS: Clear to auscultation. No wheezes or rhonchi. No intercostal retractions. HEART: Regular rate and rhythm. No murmur. ABDOMEN: Soft No tenderness. EXTREMITIES: No pedal edema. No calf tenderness. NEUROLOGICAL: Patient is awake, alert and oriented x3. Assessment: Atypical chest pain, acute coronary syndrome ruled out Recent history of shingles on the left chest Plan: Obtain exercise stress test today Obtain 2-D echocardiogram and Doppler study to assess cardiac structure and function If testing is unremarkable, patient is cleared for discharge from cardiology perspective. Thank you kindly for this consultation. Nurse practitioner note has been reviewed, I agree with documented findings and plan of care. Patient was seen and examined. Past Medical History Past Medical History: Skin Disorder Additional Past Medical History / Comment(s): OSTEOPENIA, HIATAL HERNIA,PSORIASES, SHINGLES 2005, IBS, CONSTIPATION, right knee popliteal cyst History of Any Multi-Drug Resistant Organisms: None Reported Past Surgical History: Section, Tonsillectomy Past Anesthesia/Blood Transfusion Reactions: No Reported Reaction Past Psychological History: No Psychological Hx Reported Smoking Status: Never smoker Past Alcohol Use History: Occasional Past Drug Use History: None Reported - Past Family History Father Family Medical History: Cancer Additional Family Medical History / Comment(s): FROM BLADDER CANCER AGE 47 WAS A SMOKER AND DRINKER Mother Family Medical History: Hyperlipidemia, Hypertension, Thyroid Disorder Additional Family Medical History / Comment(s): IN RESIDENTIAL HAD AMANDEEP. IS 88 YEARS OLD Medications and Allergies Home Medications Medication Instructions Recorded Confirmed Type No Known Home Medications 11/01/24 11/01/24 History Allergies Allergy/AdvReac Type Severity Reaction Status Date / Time nitrofurantoin Allergy Anaphylaxis Verified 11/01/24 08:33 [From Macrobid] amoxicillin trihydrate AdvReac JOINT PAIN Verified 11/01/24 08:33 [From Augmentin] levofloxacin AdvReac Rapid Verified 11/01/24 08:33 Heart Rate potassium clavulanate AdvReac JOINT PAIN Verified 11/01/24 08:33 [From Augmentin] Sulfa (Sulfonamide AdvReac Rash/Hives Verified 11/01/24 08:33 Antibiotics) BANDAIDS Allergy Rash/Hives Uncoded 11/01/24 08:33 Physical Exam Vitals: Vital Signs Temp Pulse Resp BP Pulse Ox 11/01/24 04:36 97.8 F 62 18 134/75 96 11/01/24 00:11 97.8 F 58 L 18 140/91 96 10/31/24 18:46 98.3 F 103 H 16 153/76 97 Intake and Output 10/31/24 11/01/24 11/01/24 22:59 06:59 14:59 Other: Weight 72.575 kg Results 10/31/24 19:35 10/31/24 19:35 Cardiac Enzymes 10/31/24 10/31/24 10/31/24 Range/Units 19:35 19:35 22:35 AST 24 (14-36) U/L Troponin I <0.012 <0.012 (0.000-0.034) ng/mL 11/01/24 Range/Units 01:44 AST (14-36) U/L Troponin I <0.012 (0.000-0.034) ng/mL Coagulation 10/31/24 Range/Units 19:35 PT 10.2 (10.0-12.5) sec APTT 19.7 L (22.0-30.0) sec CBC 10/31/24 Range/Units 19:35 WBC 9.4 (3.8-10.6) k/uL RBC 4.67 (3.80-5.40) m/uL Hgb 14.3 (11.4-16.0) gm/dL Hct 43.3 (34.0-46.0) % Plt Count 245 (150-450) k/uL Comprehensive Metabolic Panel 10/31/24 Range/Units 19:35 Sodium 136 L (137-145) mmol/L Potassium 4.0 (3.5-5.1) mmol/L Chloride 104 (98-107) mmol/L Carbon Dioxide 18 L (22-30) mmol/L BUN 13 (7-17) mg/dL Creatinine 0.72 (0.52-1.04) mg/dL Glucose 117 H (74-99) mg/dL Calcium 9.3 (8.4-10.2) mg/dL AST 24 (14-36) U/L ALT 14 (4-34) U/L Alkaline Phosphatase 72 (38-126) U/L Total Protein 6.7 (6.3-8.2) g/dL Albumin 4.1 (3.5-5.0) g/dL Current Medications Generic Name Dose Route Start Last Admin Trade Name Freq PRN Reason Stop Dose Admin Naloxone HCl 0.2 mg 10/31/24 22:00 Naloxone 0.4 Mg/Ml 1 Ml Vial IV Q2M PRN Opioid Reversal Intake and Output 10/31/24 11/01/24 11/01/24 22:59 06:59 14:59 Other: Weight 72.575 kg 10/31/24 19:35 10/31/24 19:35
--- NOTE | 2024-11-01 13:26 | CA ---
Transthoracic Echo Report Name: Sondra Mckay Age: 69 Gender: F : 1955 Exam Date: 11/01/2024 12:04 Exam Location: [place] [facility] Ht (in): 68 Wt (lb): 160 Ordering Physician: Mitzy Neal Attending/Referring Phys: Tube Splicer Yue Estrada RDCS Procedure CPT: Indications: Chest Pain Cardiac Hx: Technical Quality: Good Contrast 1: Total Dose (mL): Contrast 2: Total Dose (mL): MEASUREMENTS (Male / Female) Normal Values 2D ECHO LV Diastolic Diameter PLAX 4.5 cm 4.2 - 5.9 / 3.9 - 5.3 cm LV Systolic Diameter PLAX 2.9 cm IVS Diastolic Thickness 0.9 cm 0.6 - 1.0 / 0.6 - 0.9 cm LVPW Diastolic Thickness 0.9 cm 0.6 - 1.0 / 0.6 - 0.9 cm LV Relative Wall Thickness 0.4 RV Internal Dim ED PLAX 3.0 cm LA Systolic Diameter LX 3.4 cm 3.0 - 4.0 / 2.7 - 3.8 cm LV Diastolic Volume MOD 2C 71.4 cm??? LV Systolic Volume MOD 2C 23.3 cm??? LV Ejection Fraction MOD 2C 67.3 % LV Cardiac Index MOD 2C 1617.2 cm???/min???m??? LV Diastolic Length 2C 7.9 cm LV Systolic Length 2C 6.2 cm LA Volume 38.5 cm??? 18 - 58 / 22 - 52 cm??? LA Volume Index 20.5 cm???/m??? 16 - 28 cm???/m??? M-MODE Aortic Root Diameter MM 3.1 cm DOPPLER AV Peak Velocity 121.6 cm/s AV Peak Gradient 5.9 mmHg MV Area PHT 3.1 cm??? Mitral E Point Velocity 71.8 cm/s Mitral A Point Velocity 96.1 cm/s Mitral E to A Ratio 0.7 MV Deceleration Time 242.1 ms TR Peak Velocity 278.5 cm/s TR Peak Gradient 31.0 mmHg Right Ventricular Systolic Press 35.1 mmHg FINDINGS Left Ventricle Left ventricular ejection fraction is estimated at 55-60 %. Left ventricular cavity size normal. Left ventricular wall thickness normal. Normal left ventricular wall motion. Right Ventricle Normal right ventricular size. Mild pulmonary hypertension. Right Atrium Normal right atrial size. No right atrial thrombus or mass seen. Left Atrium Left atrium not well visualized. No left atrial thrombus or mass present. Mitral Valve Structurally normal mitral valve. No evidence for mitral valve prolapse. No mitral stenosis. Mild to moderate mitral regurgitation. Aortic Valve Trileaflet aortic valve. No aortic valve stenosis or regurgitation. Tricuspid Valve Structurally normal tricuspid valve. Mild tricuspid regurgitation. Pulmonic Valve Structurally normal pulmonic valve. No pulmonic regurgitation. Pericardium No pericardial effusion. Aorta Normal size aortic root and proximal ascending aorta. CONCLUSIONS Normal LV systolic function Mild pulmonary hypertension Mild to moderate MR No pericardial effusion Previewed by: Dr. Hari Calabrese MD (Electronically Signed) Final Date: 01 November 2024 13:25
--- NOTE | 2024-11-01 13:28 | CA ---
Exercise Stress Test Report Name: Sondra Mckay Exam Date: 11/01/2024 12:04 Exam Location: [facility] Ht (in): 68 Wt (lb): 160 BSA: 1.86 Ordering Phys: Rolanda Graf Referring Phys: CURTIS Technologist: ALAN Age: 69 Gender: F : 1955 Procedure CPT: Indications: Chest Pain ICD-10 Codes: Patient History: Medications: SEE CHART Meds past 24 hrs: Pretest Chest Pain: STRESS TEST Gibran Protocol Exercise Duration (min:sec): 05:[address] Depressions (mm): Angina Score: Eagle Score: Resting HR (bpm): 89 Peak HR (bpm): 122 Resting BP (mmHg): 134 / 97 Peak BP (mmHg): 206 / 98 MPHR: 153 Target HR: 130 % MPHR: 80 METS: 7.1 Total Dose: Peak Dose: Atropine: Double Product: 04636 BP Response: Stress Termination: Fatigue Stress Symptoms: FATIGUE,uneasy feeling Stress Summary: ECG ANALYSIS Resting ECG: Stress ECG: CONCLUSIONS Average exercise tolerance The patient achieved 80% of maximum predicted heart rate Normal electrocardiogram stress test up to the heart rate which was achieved Overall nondiagnostic stress testing because the patient achieved less than 85% of maximum predicted heart Dr. Hari Calabrese MD (Electronically Signed) Final Date: 01 November 2024 13:27
[2024-11-01] MEDS: PANTOPRAZOLE 40 MG TABLET PO SCH (14:13)
--- NOTE | 2024-11-01 14:41 | US ---
EXAMINATION TYPE: US gallbladder DATE OF EXAM: 11/01/2024 COMPARISON: NONE CLINICAL INDICATION: Female, 69 years old with history of pain after eating; pt states pain in chest after eating TECHNIQUE: Grayscale and color Doppler imaging of the right upper quadrant was performed. FINDINGS: EXAM MEASUREMENTS: Liver Length: 12.7 cm Gallbladder Wall: 0.2 cm CBD: not seen Right Kidney: 9.4 x 4.6 x 3.8 cm CONTROL ELECTRICIAN NOTES:limited due to overlying bowel gas Pancreas: duct measuring 4.1mm. This is minimally enlarged. No discrete abnormality however is not e vident. Additional workup with contrast CT is recommended. Liver: wnl Gallbladder: wnl Evidence for sonographic Waldrop's sign: no CBD: not seen due to overlying bowel gas Right Kidney: wnl IMPRESSION: 1. There is minimal prominence of the pancreatic duct the head of the pancreas. Consider additional w orkup with contrast CT with dedicated pancreas protocol. 2. No acute right upper quadrant ultrasound abnormality otherwise apparent. [facility], , 11/01/2024 2:39 PM
--- NOTE | 2024-11-01 15:08 | P.HPIM ---
History of Present Illness H&P Date: 11/01/24 This is a pleasant 69-year-old female with no significant medical history comes in with reports of left-sided chest discomfort rating it is sharp and stabbing in severity. Patient states that this happened yesterday evening she ate her normal dinner was sitting up in the chair and about 50 minutes after dinner she been experiencing this pain. She states that it then became tight and radiation to her back. Patient states that she used a heating pad the pain was not going away and she called EMS. Patient was given a sublingual nitroglycerin while in the ER as well as 4 baby aspirin. She states that after she was given the nitro the pain did go away. She denies any dizziness or lightheadedness patient not having any associated diaphoresis or shortness of breath. Patient was admitted to the hospital under internal medicine with a cardiology consultation. Troponin level negative x 3. Minimally elevated lipase level 354, sodium of 136, BUN of 13 creatinine 0.72. Her viral panel was negative. Her CBC is unremarkable. Chest X-ray reveals no acute cardiopulmonary process. EKG reveals normal sinus rhythm heart rate of 96 there are no specific T wave or ST changes. Patient underwent echo stress test. Echocardiogram reveals normal LV systolic function with mild pulmonary hypertension mild to moderate MR with no pericardial effusion. Stress test reveal average exercise tolerance with 80 within the maximum predicted heart rate normal electro cardio gram stress test to the heart rate which was achieved. Overall nondiagnostic stress testing because the patient heart rate. Gallbladder ultrasound prominence of the pancreatic duct in the head of the pancreas consider additional workup with contrast CT with dedicated pancreas protocol. There is a 4.1 cm pancreatic duct which is minimally enlarged. There is no acute right upper quadrant ultrasound abnormality otherwise apparent. Patient is not having any abdominal pain with palpation. Currently all of her symptoms have resolved at this time. She will be discharged home. REVIEW OF SYSTEMS: CONSTITUTIONAL: No fever, no malaise, no fatigue. HEENT: No recent visual problems or hearing problems. Denied any sore throat. CARDIOVASCULAR: No chest pain, orthopnea, PND, no palpitations, no syncope. PULMONARY: No shortness of breath, no cough, no hemoptysis. GASTROINTESTINAL: No diarrhea, no nausea, no vomiting, no abdominal pain. NEUROLOGICAL: No headaches, no weakness, no numbness. HEMATOLOGICAL: Denies any bleeding or petechiae. GENITOURINARY: Denies any burning micturition, frequency, or urgency. MUSCULOSKELETAL/RHEUMATOLOGICAL: Denies any joint pain, swelling, or any muscle pain. ENDOCRINE: Denies any polyuria or polydipsia. The rest of the 14-point review of systems is negative. PHYSICAL EXAMINATION: GENERAL: The patient is alert and oriented x3, not in any acute distress. Well developed, well nourished. HEENT: Pupils are round and equally reacting to light. EOMI. No scleral icterus. No conjunctival pallor. Normocephalic, atraumatic. No pharyngeal erythema. No thyromegaly. CARDIOVASCULAR: S1 and S2 present. No murmurs, rubs, or gallops. PULMONARY: Chest is clear to auscultation, no wheezing or crackles. ABDOMEN: Soft, nontender, nondistended, normoactive bowel sounds. No palpable organomegaly. MUSCULOSKELETAL: No joint swelling or deformity. EXTREMITIES: No cyanosis, clubbing, or pedal edema. NEUROLOGICAL: Gross neurological examination did not reveal any focal deficits. SKIN: No rashes. Assessment and Plan Acute chest atypical, ACS ruled out this is likely GI in nature Mildly elevated lipase with mildly elevated pancreatic duct at 4.1 cm. Recommending to see GI on discharge and discuss with PCP for contrast CT of the abdomen on an outpatient basis. History of hiatal hernia History of IBS GI prophylaxis Full Code Plan All testing has been reviewed Recommend trial of protonix Follow up with PCP, GI and cardiology on an outpatient basis Repeat lipase on follow up 3 days Medically patient is cleared for DC home. The impression and plan of care has been dictated by Rocio Mullen Nurse Practitioner as directed. Dr. Harsha MD I have performed a history and physical examination and medical decision making of this patient, discussed the same with the dictator, and agree with the dictators assessment and plan as written, documented as a scribe. Based on total visit time, I have performed more than 50% of this visit. Past Medical History Past Medical History: Skin Disorder Additional Past Medical History / Comment(s): OSTEOPENIA, HIATAL HERNIA,PSORIASES, SHINGLES 2005, IBS, CONSTIPATION, right knee popliteal cyst History of Any Multi-Drug Resistant Organisms: None Reported Past Surgical History: Section, Tonsillectomy Past Anesthesia/Blood Transfusion Reactions: No Reported Reaction Past Psychological History: No Psychological Hx Reported Smoking Status: Never smoker Past Alcohol Use History: Occasional Past Drug Use History: None Reported - Past Family History Father Family Medical History: Cancer Additional Family Medical History / Comment(s): FROM [place] AGE 47 WAS A SMOKER AND DRINKER Mother Family Medical History: Hyperlipidemia, Hypertension, Thyroid Disorder Additional Family Medical History / Comment(s): IN [place] HAD ALZHIEMERS. IS 88 YEARS OLD Medications and Allergies Home Medications Medication Instructions Recorded Confirmed Type Pantoprazole [Protonix] 40 mg PO AC-BRKFST #30 tab 11/01/24 Rx Allergies Allergy/AdvReac Type Severity Reaction Status Date / Time nitrofurantoin Allergy Anaphylaxis Verified 11/01/24 08:33 [From Macrobid] amoxicillin trihydrate AdvReac JOINT PAIN Verified 11/01/24 08:33 [From Augmentin] levofloxacin AdvReac Rapid Verified 11/01/24 08:33 Heart Rate potassium clavulanate AdvReac JOINT PAIN Verified 11/01/24 08:33 [From Augmentin] Sulfa (Sulfonamide AdvReac Rash/Hives Verified 11/01/24 08:33 Antibiotics) BANDAIDS Allergy Rash/Hives Uncoded 11/01/24 08:33 Physical Exam Vitals: Vital Signs Temp Pulse Resp BP Pulse Ox 11/01/24 10:17 70 22 135/92 95 11/01/24 04:36 97.8 F 62 18 134/75 96 11/01/24 00:11 97.8 F 58 L 18 140/91 96 10/31/24 18:46 98.3 F 103 H 16 153/76 97 Results CBC & Chem 7: 10/31/24 19:35 10/31/24 19:35 Labs: Abnormal Lab Results - Last 24 Hours (Table) 10/31/24 10/31/24 10/31/24 Range/Units 19:35 19:35 19:39 APTT 19.7 L (22.0-30.0) sec Sodium 136 L (137-145) mmol/L Carbon Dioxide 18 L (22-30) mmol/L Glucose 117 H (74-99) mg/dL Lipase 354 H (23-300) U/L Urine Blood Small H (Negative) Ur Leukocyte Esterase Large H (Negative) Urine WBC 21 H (0-5) /hpf Urine Bacteria Rare H (None) /hpf Assessment and Plan Time with Patient: Less than 30
[2024-11-01 16:27] VITALS: BP 130/88; PULSE 62; RESP 24
== END 2024-11-01 16:00 | disposition home or self-care (01) ==
LOC: EC 18:36 → 6NMEDSUR 22:28
PROVIDERS: ADMIT Hospitalist; ATTEND Hospitalist
DX: R07.89 Other chest pain (principal); R74.8 Abnormal levels of other serum enzymes; I27.20 Pulmonary hypertension, unspecified; K58.9 Irritable bowel syndrome, unspecified; Z88.1 Allergy status to other antibiotic agents; Z88.2 Allergy status to sulfonamides
CPT/HCPCS: 96374; 99285; 36415; 93005; 93017; 93306; 80053; 83690; 83735; 84484 ×2; 85025; 85610; 85730; 81001; 87636; 71046; 76705; G0378 ×2; J0696

== ENCOUNTER → 2024-11-20 | Outpatient (CLI) | payer MEDICARE ==
[2024-11-20 08:24] LABS: African American GFR (CKD) 85 (>60 ml/min/1.73 sqM); Blood Urea Nitrogen 12 mg/dL (7-17); Non-African American GFR(CKD) 74 (>60 ml/min/1.73 sqM)
--- NOTE | 2024-11-20 09:34 | CT ---
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 Pancreatic protocol per radiologist., TECHNIQUE: CT scan of the abdomen is performed with IV Contrast, patient injected with 100ml mL of Isovue 300., (none if empty) Oral contrast used: without Oral Contrast (none if empty) CT DLP: 668.10 mGycm, Automated exposure control for dose reduction was used. FINDINGS: LUNG BASES: No significant abnormality is appreciated. LIVER/GB: The liver is heterogeneously hypodense suggesting diffuse fatty infiltration. No biliary di latation is seen. PANCREAS: Pancreas is normal in size. There is slight prominence of the duct in the pancreatic head a t 4 mm axial image 57. No surrounding ill-defined fluid. No well-formed fluid collection. No glandula r calcifications. No concerning masses. There is some tapering of the duct towards the duodenal ampul la. No divisum. SPLEEN: No significant abnormality is seen. ADRENALS: No significant abnormality is seen. KIDNEYS: No significant abnormality is seen. BOWEL: No significant abnormality is seen. LYMPH NODES: No greater than 1cm abdominal lymph nodes are appreciated. OSSEOUS STRUCTURES: Slight grade 1 anterolisthesis L4 and L5.. OTHER: Tiny fat-containing umbilical hernia. IMPRESSION: Mild focal prominence or dilatation of the pancreatic duct up to 4 mm in the pancreatic h ead. Consider annual imaging monitoring. MRI/MRCP performed over CT. [facility], , 11/20/2024 9:31 AM
== END | disposition home or self-care (01) ==
LOC: RADCTMAIN 07:29
PROVIDERS: ATTEND Family Medicine
DX: Q45.3 Other congenital malformations of pancreas and pancreatic duct (principal)
CPT/HCPCS: 82565; 84520; 74160; 36415; Q9967